=== PATIENT | female | born 2000 | race Caucasian/White ===

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

== ENCOUNTER 2018-08-02 11:44 | Emergency (ER) | payer OTHER ==
[~2018-08-02] VITALS: Ht 170.1 cm; Wt 83.9 kg
[2018-08-02] MEDS ORDERED: AMOXICILLIN500 M2 PO (14:30)
== END 2018-08-02 14:44 | disposition home or self-care (01) ==
LOC: ED 11:44
DX: J02.9 Acute pharyngitis, unspecified (principal); F17.200 Nicotine dependence, unspecified, uncomplicated